=== PATIENT | female | born 1960 | race Caucasian/White ===

== ENCOUNTER → 2020-11-24 | Outpatient (CLI) | payer OTHER ==
[2020-11-24] MEDS: REGADENOSON 0.4 MG/5 ML DISP.SYRIN. IV ONE (10:35)
--- NOTE | 2020-11-24 13:57 | RAD ---
MR#: [id number] Date of Study: 11/24/2020 Ordering Physician: ANI ACEVEDO, Referring Physician: KEMI POE Tech: MAMIE Malloy ARRT (R) (N) APPROVED REPORT Test Type: Pharmacological Stress Nurse/Tech: Brooke Jackson R.N. Test Indications: LBBB Cardiac History: htn, high cholesterol Medications: See Electronic Medical Record Medical History: See Electronic Medical Record Resting ECG: SB w/ LBBB. very slight ST elevation in leads II,V1-3. inverted T wave in lead AVL Resting Heart Rate: 50 bpm Resting Blood Pressure: 117/64mmHg Pretest Chest Pain: No chest pain Nurse/Tech Notes S1S2, lungs CTA Consent: The procedure was explained to the patient in lay terms. Informed consent was witnessed. Gray eout was entered into [email or web address]. History and Stress Test performed by MAMIE Malloy ARRT (R) (N) Pharm. Details Pharmacologic stress testing was performed using 0.4mg per 5ml of regadenoson given intravenously ove r 7-10 seconds. Stress Symptoms SOA, H/A, nausea POST EXERCISE Reason for Termination: Infusion complete Max HR: 83 bpm Max Blood Pressure: 124/62mmHg Blood Pressure response to exercise: Normal blood pressure response during stress. Heart Rate response to exercise: wnl Chest Pain: No. Arrhythmia: No. ST Change: No. no changes from abnormal baseline INTERPRETATION Stress EKG Conclusion: Non-diagnostic EKG due to underlying LBBB Imaging Protocol IMAGE PROTOCOL: Rest Tc-99m/stress Tc-99m 1 day Rest: Stress: Viability: Radiopharm.Tc99m SxdptugxkFu83d Sestamibi Vtfa25aNl 33mCi Img Date 11/24/2020 11/24/2020 Inj-Img Aywc60har. 60min. Rest Admin Site:IV - Right AntecubitalAdministrator:MAMIE Malloy ARRT (R)(N) Stress Admin Site: IV - Right AntecubitalAdministrator: Aldair Bullis, GEODETIC TECHNICIAN STRESS DATA End Diast. Vol.63.0mlLVEDV index BSA37.0ml End Syst. Vol.21.0mlLVESV index BSA12.0ml Myocardial Lwyc612.0gEject. Iqdjcmje17.0% Stress Scores Regional WT0.00Summed WT4.00 Regional WM0.00Summed WM6.00 The rest and stress images show normal perfusion, normal contraction and thickening. LV Perf. Quant 17 Seg. SSS2.00 17 Seg. SRS6.00 17 Seg. SDS0.00 Stress Defect Extent (% LAD)0.00Rest Defect Extent (% LAD)7.50Rev. Defect Extent (% LAD)0.00 Stress Defect Extent (% LCX) 0.00Rest Defect Extent (% LCX)0.00Rev. Defect Extent (% LCX)0.00 Stress Defect Extent (% RCA)2.20Rest Defect Extent (% RCA)5.60Rev. Defect Extent (% RCA)0.00 Stress Defect Extent (% SLICK)1.30Rest Defect Extent (% SLICK)8.70Rev. Defect Extent (% SLICK)0.00 Other Information Quality:Average Risk Assessment: Low Risk Conclusion 1. Nondiagnostic stress EKG due to underlying left bundle branch block 2. Normal perfusion and stress and rest. 3. Normal LV systolic function with ejection fraction greater than 60%. 4. Low risk study Signed by : Jhon Travis, Electronically Approved : 11/24/2020 13:56:45
== END ==
LOC: NM 09:12
PROVIDERS: ATTEND Internal Medicine Cardiovascular Disease
DX: I44.7 Left bundle-branch block, unspecified (principal); I10 Essential (primary) hypertension
CPT/HCPCS: 78452; 93017; A9500; J2785

== ENCOUNTER → 2020-11-30 | Outpatient (CLI) | payer OTHER ==
--- NOTE | 2020-11-30 17:20 | CARD ---
MR#: [id number] Date of Study: 11/30/2020 Ordering Physician: ANI ACEVEDO, Referring Physician: Bubba POE: Li Garduno [facility] APPROVED REPORT EXAM: Two-dimensional and M-mode echocardiogram with Doppler and color Doppler. Other Information Quality : Average Rhythm : LBBB INDICATION Dyspnea 2D DIMENSIONS RVDd3.1 (2.9-3.5cm)Left Atrium(2D)3.4 (1.6-4.0cm) IVSd0.8 (0.7-1.1cm)Aortic Root(2D)2.8 (2.0-3.7cm) LVDd3.6 (3.9-5.9cm)LVOT Diameter1.9 (1.8-2.4cm) PWd1.2 (0.7-1.1cm)LVDs2.8 (2.5-4.0cm) FS (%) 22.2 %SV25.2 ml Aortic Valve AoV Peak Gume.125.5cm/Ayesha Peak GR.6.6mmHg LVOT Peak Gume.98.0cm/sAVA (VMAX)2.32cm2 Mitral Valve MV E Heczdogt91.5cm/sMV DECEL PHBV921un MV A Kxatpuva75.8cm/sE/A Ratio1.6 Pulmonary Valve PV Peak Jtvafnbr66.4cm/s Tricuspid Valve TR P. Bkwotjbz342yt/sRAP LPTFLGLA8yfAj TR Peak Gr.17lfBtHGUR01idXe Pulmonary Vein S1 Pnfgoxuo92.0cm/sD2 Sgxvzbef55.6cm/s PVa sreouuwp35smxi LEFT VENTRICLE The left ventricle is normal size. There is normal left ventricular wall thickness. The left ventricu lar systolic function is normal and the ejection fraction is within normal range. LV ejection fractio n is 50%. No regional wall motion abnormalities noted. The left ventricular diastolic function is nor mal. No left ventricle thrombus noted on this study. There is no ventricular septal defect visualized . There is no left ventricular aneurysm. There is no mass noted in the left ventricle. RIGHT VENTRICLE The right ventricle is normal size. There is normal right ventricular wall thickness. The right ventr icular systolic function is normal. ATRIA The left atrium size is normal. The right atrium size is normal. The interatrial septum is intact wit h no evidence for an atrial septal defect or patent foramen ovale as noted on 2-D or Doppler imaging. AORTIC VALVE The aortic valve is normal in structure and function. Doppler and Color Flow revealed no significant aortic regurgitation. There is no significant aortic valvular stenosis. There is no aortic valvular v egetation. MITRAL VALVE The mitral valve is normal in structure and function. There is no evidence of mitral valve prolapse. There is no mitral valve stenosis. There is no mitral valve regurgitation noted. TRICUSPID VALVE The tricuspid valve is normal in structure and function. Doppler and Color Flow revealed mild tricusp id regurgitation. PAP 29 mmHg. There is no tricuspid valve prolapse or vegetation. There is no tricus pid valve stenosis. PULMONIC VALVE The pulmonary valve is normal in structure and function. There is no pulmonic valvular regurgitation. There is no pulmonic valvular stenosis. GREAT VESSELS The aortic root is normal in size. The ascending aorta is normal in size. The pulmonary artery is nor mal. The IVC is normal in size and collapses >50% with inspiration. PERICARDIAL EFFUSION There is no pleural effusion. The pericardium appears normal. Critical Notification Critical Value: No <Conclusion> The left ventricle is normal size. The left ventricular systolic function is normal and the ejection fraction is within normal range. LV ejection fraction is 50%. Doppler and Color Flow revealed no significant aortic regurgitation. There is no significant aortic valvular stenosis. There is no mitral valve regurgitation noted. Doppler and Color Flow revealed mild tricuspid regurgitation. PAP 29 mmHg. Signed by : Pavan Recinos MD Electronically Approved : 11/30/2020 17:19:39
== END ==
LOC: ECHO 09:00
PROVIDERS: ATTEND Internal Medicine Cardiovascular Disease
DX: I07.1 Rheumatic tricuspid insufficiency (principal); I44.7 Left bundle-branch block, unspecified
CPT/HCPCS: 93306